=== PATIENT | male | born 1945 | race Two or more races ===

== ENCOUNTER 2020-04-23 10:02 | Outpatient (CLI) | payer MEDICARE ==
[2020-04-23 10:40] VITALS: BP 103/60
--- NOTE | 2020-04-23 18:59 | Consultation ---
DATE OF CONSULTATION: 04/23/2020 CONSULTING PHYSICIAN: Demarcus York MD CHIEF COMPLAINT: Abdominal pain and bloating. HISTORY OF PRESENT ILLNESS: This is a 74-year-old male, apparently had a colonoscopy over 4 years ago. According to the patient, everything was good. They told him his colonoscopy was okay. mainly complained of bloating. No nausea. No vomiting. No dysphagia. No odynophagia. No melena. No hematochezia. Complained of 50 pounds of wanted weight loss. He was told that he has cardiomegaly and he needs to lose weight. PAST MEDICAL HISTORY: 1. Coronary artery disease. 2. CVA. 3. Hypertension. 4. Hypercholesterolemia. PAST SURGICAL HISTORY: None. MEDICATIONS: Please see medication reconciliation list. FAMILY HISTORY: No family history of GI malignancies. SOCIAL HISTORY: Patient drinks occasionally. Denies any tobacco or IV drug abuse. ALLERGIES: No known drug allergies. REVIEW OF SYSTEMS: As dictated above. PHYSICAL EXAMINATION: VITAL SIGNS: Temperature 97.3, pulse 60, respirations 20. Height is 5 feet 4 inches. Weight is 161. HEENT: Normocephalic, atraumatic. Sclerae anicteric. NECK: Supple. No evidence of obvious lymphadenopathy. CARDIOVASCULAR: Regular rate and rhythm. Plus S1-S2. LUNGS: Clear to auscultation bilaterally. ABDOMEN: Positive bowel sounds. Soft and nontender. No rebound. No guarding. No peritoneal sign. EXTREMITIES: No cyanosis, no clubbing, no edema. ASSESSMENT AND PLAN: This is a 74-year-old male complained of mainly bloating. Patient was given a special diet stated from lactose content products, dairy products, stated from fresh foods and vegetables. Patient was given probiotic, Align to trial for 2 months and come back in the office for followup. Demarcus York M.D. DR: HUMBERTO JOB#: [id number] CC:
== END 2020-04-23 12:03 | disposition home or self-care (01) ==
LOC: PAN 10:02
DX: R10.9 Unspecified abdominal pain (principal); R14.0 Abdominal distension (gaseous); I11.9 Hypertensive heart disease without heart failure; I25.10 Atherosclerotic heart disease of native coronary artery without angina pectoris; E78.00 Pure hypercholesterolemia, unspecified; Z86.73 Personal history of transient ischemic attack (TIA), and cerebral infarction without residual deficits
CPT/HCPCS: 99203